=== PATIENT | female | born 1990 | race Caucasian/White ===

== ENCOUNTER 2019-03-24 21:07 | Emergency (ER) | payer OTHER ==
[2019-03-24 21:12] VITALS: BP 138/96
--- NOTE | 2019-03-24 21:14 | ER Report ---
History and Physical Time Seen By MD: 21:09 HPI/ROS CHIEF COMPLAINT: Needlestick injury HISTORY OF PRESENT ILLNESS: 28-year-old female patient presents to emergency room with complaint of a needlestick injury. 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 She was going to test for numbness after anesthetizing patient. When she went to remove the cap off of the needle she stuck herself with the and which been used to anesthetize the patient. Patient states that she is current on her tetanus. She did wash her hands for an extended period time. Allergies: Coded Allergies: No Known Drug Allergies (Unverified , 03/07/17) Past Medical/Surgical History Patient has no pertinent medical history. Patient has a surgical history of her wisdom teeth removed. Reviewed Nurses Notes: Yes Hx Substance Use Disorder: No Constitutional Vital Sign - Last 24 Hours 03/24/19 21:12 Temp 97.7 Pulse 65 Resp 18 B/P (MAP) 138/96 Pulse Ox 100 O2 Delivery Room Air Physical Exam General appearance: Alert no distress. Respiratory: Chest is non tender, lungs are clear to auscultation. Cardiac: Regular rate and rhythm. Skin: Patient has a puncture wound to the palmar aspect of the left hand. There is no bleeding at this time. There is no redness, swelling or discharge. DIFFERENTIAL DIAGNOSIS: After history and physical exam differential diagnosis was considered for exposure to blood-borne pathogen. Medical Decision Making Data Points Laboratory Hematology Test 03/24/19 21:20 Chemistry Test 03/24/19 21:20 ED Course/Re-evaluation ED Course Patient is admitted to an exam room, history and physical were obtained. Differential diagnoses were considered. On examination lungs are clear, heart is regular, abdomen soft nontender. Patient does have significant injury to the palmar aspect of the left third finger. No bleeding noted at this time. An HIV, hep B, hep C panels were done. Patient will be discharged at this time. She is to follow-up in 3 months for repeat testing if needed. Patient verbalized un derstanding and agreement with plan. Decision to Disposition Date: Mar 24, 2019 Decision to Disposition Time: 21:12 Depart Departure Latest Vital Signs Vital Signs Date Time Temp Pulse Resp B/P (MAP) Pulse Ox O2 Delivery O2 Flow Rate FiO2 03/24/19 21:12 97.7 65 18 138/96 100 Room Air Impression: Primary Impression: Needle stick injury of finger of left hand Condition: Improved Disposition: HOME OR SELF-CARE Patient Instructions: Needle Stick Injuries (ED) Additional Instructions: Keep wound clean. Monitor for signs of infection. Return to the ER with any concerns. Continue with your normal medications. You may need to have follow up with testing done at 3 months, 6 month and 9 months. Problem Qualifiers Primary Impression: Needle stick injury of finger of left hand Encounter type: initial encounter Qualified Codes: S61.239A - Puncture wound without foreign body of unspecified finger without damage to nail, initial encounter; W27.3XXA - Contact with needle (sewing), initial encounter MITCHELL ZAMARRIPA Mar 24, 2019 21:14
== END 2019-03-24 21:31 | disposition home or self-care (01) ==
LOC: ER 21:17
DX: S61.233A Puncture wound without foreign body of left middle finger without damage to nail, initial encounter (principal)
CPT/HCPCS: 86703; 86706; 86803; 87340; 99282

== ENCOUNTER → 2019-05-05 | Outpatient (CLI) | payer OTHER | LOC: LAB 10:52 | DX: Z77.21 Contact with and (suspected) exposure to potentially hazardous body fluids (principal) | CPT/HCPCS: 36415; 86703 ==